=== PATIENT | female | born 1975 | race Hispanic/Latino ===

== ENCOUNTER 2020-07-10 13:36 | Outpatient (CLI) | payer OTHER ==
--- NOTE | 2020-07-10 15:24 | MRI ---
MRI BRAIN WITH AND WITHOUT CONTRAST: DATE: 07/10/2020 HISTORY: 45-year-old female with headache: "G 43.009, atypical migraine; R 53.1 left-sided weakness; R 20.0 le ft-sided numbness" TECHNIQUE: Multiplanar, multisequence MRI of the brain obtained pre and post IV injection of gadolinium based co ntrast agent. FINDINGS: The ventricles are normal in size and configuration. There is no midline shift or any other evidence of mass effect. There is no extra-axial fluid collection. There is no intra-axial signal abnormality, abnormal enhancement, mass, recent hemorrhage, or restricted diffusion. IMPRESSION: Normal
== END 2020-07-10 13:37 | disposition home or self-care (01) ==
LOC: SCSMRI 13:36
PROVIDERS: ATTEND Family Medicine
DX: G43.009 Migraine without aura, not intractable, without status migrainosus (principal); R53.1 Weakness; R20.0 Anesthesia of skin
CPT/HCPCS: 70553